=== PATIENT | female | born 1995 | race Caucasian/White ===

== ENCOUNTER 2020-04-12 | Emergency (ER) | payer OTHER, SELFPAY ==
--- NOTE | 2020-04-12 20:40 | ER ---
Nurse's Notes [facility] Name: Sindhu Pulido Age: 25 yrs Sex: Female : 1995 Arrival Date: 04/12/2020 Time: 20:28 Bed 15 Private MD: Diagnosis: Presentation: 04/12 20:28 Chief complaint: Patient states: "You don't have to triage me. I don't want to be seen. ca1 I want to sign myself out". Chief complaint: Chief complaint: EMS states: She reported she had a big drink, had an anxiety attack and 1 witness reported a seizure. Reports Hx of seizure, has not taking meds. Upon arrival on scene, pt has passed out with vomit all over. In the ambulance, she came to and states she doesn't want to be seen and come to the ER. A\\T\\Ox4, VS BP 110/60, HR 120. 20:28 Method Of Arrival: EMS: [facility] ca1 20:28 Method Of Arrival: EMS: [facility] ca1 ED Course: 20:28 Patient arrived in ED. am2 20:31 Gary Cruz MD is Attending Physician. 7 20:34 Cora Hawkins RN is Primary Nurse. ca1 Administered Medications: No medications were administered Outcome: 20:39 AMA AMA form signed ca1 20:40 Patient left the ED. ca1 Signatures: Karla Hernández am2 Cora Hawkins RN RN ca1 Gary Cruz MD MD [facility] Corrections: (The following items were deleted from the chart) 20:40 20:28 Chief complaint: EMS states: She reported she had a bog drink, had an anxiety ca1 attack and 1 witness reported a seizure. Reports Hx of seizure, has not taking meds. Upon arrival on scene, pt has passed out with vomit all over. In the ambulance, she came to and states she doesn't want to be seen and come to the ER. A\\T\\Ox4, VS BP 110/60, HR 120. Chief complaint: EMS states: She reported she had a bog drink, had an anxiety attack and 1 witness reported a seizure. Reports Hx of seizure, has not taking meds. Upon arrival on scene, pt has passed out with vomit all over. In the ambulance, she came to and states she doesn't want to be seen and come to the ER. A\\T\\Ox4, VS BP 110/60, HR 120. ca1
== END 2020-04-12 20:40 | disposition left against medical advice (07) ==
DX: Z53.21 Procedure and treatment not carried out due to patient leaving prior to being seen by health care provider (principal)
CPT/HCPCS: 99282

== ENCOUNTER 2023-10-08 19:01 | Emergency (ER) | payer OTHER ==
--- OUTSIDE RECORDS SUMMARY | 2023-10-08 19:04 | XMS REPORT | Continuity of Care Document ---
Author Name Unknown Address [address] [place] [address] [facility] Address [address] [place] [address] Care Team Providers Care Flume Tender Name Role Phone PCP, PATIENT DOES NOT HAVE A Primary Care Physic mago Unavailable Sangeeta MCKOY Attending Clinician Unavailable Sangeeta Ring Attending Clinician DANIEL LINTON Attending Clinician Unavailable Sangeeta MCKOY Admitting Clinician Unavailable Payers Payer Name Policy Type Policy Number Effective Date Expirati on Date Source [facility] [id number] 2022 00:00:00 Problems Condition Name Condition Details Condition Category Status Onset Date Resolution Date Last Treatment Date Treating Clinician Comments Source Pyelonephr itis Pyelonephr itis Disease Active 12-23 00:00: 00 [facility] Hypothyroi d Hypothyroi d Disease Active 10-16 00:00: 00 [facility] Allergies, Adverse Reactions, Alerts Allergy Name Allergy Type Status Severity Reaction(s) Onset Date Inactive Date Treating Clinician Comments Source AMOXICIL DINO DRUG INGREDI Active Other-Cmnt 08-02 00:00: 00 [facility] Amoxicil dino Propensi ty to adverse reaction s Active Other - See comments 08-02 00:00: 00 Chest pain [facility] PENICILL INS Drug Class Active Anaphylaxis 11-19 00:00: 00 [facility] Penicill ins Propensi ty to adverse reaction s to drug Active Anaphylaxis 11-19 00:00: 00 [facility] BEE STING / VENOM DRUG INGREDI Active High Hives 10-16 00:00: 00 [facility] Bee Sting / Venom Propensi ty to adverse reaction s Active Hives 10-16 00:00: 00 [facility] Social History Social Habit Start Date Stop Date Quantity Comments Source History of tobacco use Cigarette Smoker [facility] intake 2023-03-21 00:00:00 2023-03-21 00:00:00 0 /d [facility] History of Social function 2023-03-21 00:00:00 2023-03-21 00:00:00 [facility] Cigarettes smoked current (pack per day) - Reported 2015-08-14 00:00:00 2015-08-14 00:00:00 [facility] Cigarette pack-years 2015-08-14 00:00:00 2015-08-14 00:00:00 [facility] Tobacco use and exposure 2015-08-14 00:00:00 2015-08-14 00:00:00 User of smokeless tobacco [facility] Sex Assigned At 1995 00:00:00 1995 00:00:00 [facility] Smoking Status Start Date Stop Date Source Smokes tobacco daily 2015-08-14 00:00:00 [facility] Medications Ordered Medication Name Filled Medication Name Start Date Stop Date Current Medication? Ordering Clinician Indication Dosage Frequency Signature (SIG) Comments Components Source naproxen (NAPROSYN) tablet 500 mg 2022-05 04:15: 00 03-22 03:13 :00 No 500mg 500 mg, Oral, ONCE, 1 dose, On Tue03/21/23 at 2215, Routine [facility] clindamycin (CLEOCIN HCL) capsule 300 mg 2022-05 04:00: 00 03-22 03:12 :00 No 300mg 300 mg, Oral, ONCE, 1 dose, On Tue03/21/23 at 2200, KARL
Re ason for Anti-Infec tive: Documented Infection< br>Agustina watters Infection Site: HEENT
D uration of Therapy: 10 days
Re stricted use approved by: ED PROVIDER [facility] naproxen (NAPROSYN) 500 mg tablet 2022-05 00:00: 00 Yes [id number] 500mg Take 1 tablet by mouth in the morning and 1 tablet in the evening. Take with meals. [facility] clindamycin 300 mg capsule 2022-05 00:00: 00 04-01 05:59 :00 No [id number] 300mg Take 1 capsule by mouth 4 (four) times daily for 10 days. [facility] ciprofloxac in HCl 500 mg tablet 08-03 00:00: 00 Yes [id number] 500mg Take 1 tablet by mouth daily. [facility] doxycycline hyclate 100 mg capsule 08-02 00:00: 00 Yes [id number] 100mg Take 1 capsule by mouth 2 (two) times daily. [facility] Immunizations Ordered Immunization Name Filled Immunization Name Date Status Comments Source DTAP Unknown Completed [facility] DTAP Unknown Completed [facility] DTAP Unknown Completed [facility] DTAP Unknown Completed [facility] DTAP Unknown Completed [facility] HIB 4 Dose Schedule Unknown Completed [facility] HIB 4 Dose Schedule Unknown Completed [facility] HIB 4 Dose Schedule Unknown Completed [facility] HIB 4 Dose Schedule Unknown Completed [facility] HEPATITIS A Unknown Completed [facility] HEPATITIS A Unknown Completed [facility] Hep B, Adol or Pedi Dosage Unknown Completed [facility] Hep B, Adol or Pedi Dosage Unknown Completed [facility] Hep B, Adol or Pedi Dosage Unknown Completed [facility] HPV Unknown Completed [facility] HPV Unknown Completed [facility] HPV Unknown Completed [facility] Meningococcal Polysaccharide (groups A, C, Y and W-135) conjugate vaccine (MCV4P) Unknown Completed [facility] MMR Unknown Completed [facility] MMR Unknown Completed [facility] Polio (IPV/OPV) Unknown [facility] Polio (IPV/OPV) Unknown [facility] Polio (IPV/OPV) Unknown [facility] Polio (IPV/OPV) Unknown [facility] TDAP Unknown Completed [facility]pox Disease [facility] Unknown Completed [facility] Vital Signs Vital Name Observation Time Observation Value Comments S ource Systolic blood pressure 2023-03-22 02:57:00 125 mm[Hg] [facility] Diastolic blood pressure 2023-03-22 02:57:00 82 mm[Hg] [facility] Heart rate 2023-03-22 02:57:00 97 /min [facility] Body temperature 2023-03-22 02:57:00 37.22 Jennifer [facility] Respiratory rate 2023-03-22 02:57:00 16 /min [facility] Body height 2023-03-22 02:57:00 147.3 cm [facility] Body weight 2023-03-22 02:57:00 50.803 kg [facility] BMI 2023-03-22 02:57:00 23.41 kg/m2 [facility] Oxygen saturation in Arterial blood by Pulse oximetry 2023-03-22 02:57:00 99 /min [facility] Procedures Procedure Date / Time Performed Performing Clinicia n Source ASSIGNMENT OF BENEFITS 2023-03-22 04:10:22 Docto r Unassigned, Luis Lopez [facility] XR KNEE 3 VW LEFT 2023-03-22 03:35:46 Sangeeta Mckoy [facility] NOTICE OF PRIVACY PRACTICES 2023-03-22 02:44:41 Doctor Unassigned, Luis Lopez [facility] CONSENT/REFUSAL FOR DIAGNOSIS AND TREATMENT 2023-03-22 02:43:57 Doctor Unassigned, Luis Lopez [facility] Encounters Start Date/Time End Date/Time Encounter Type Admission Type Attending [facility] Care Facility Care Department Encounter ID Source 2023-03-21 21:00:00 2023-03-21 22:40:00 Emergency X Sangeeta MCKOY [facility] ERT [id number] [facility] 2023-03-21 21:00:00 2023-03-21 22:40:00 Emergency Sangeeta Mckoy [facility] [id number] [facility] 2020-08-02 13:58:00 2020-08-02 13:58:00 Emergency X DANIEL LINTON [facility] ERT [id number] [facility]
--- NOTE | 2023-10-08 19:25 | ER ---
Nurse's Notes [facility] Name: Sindhu Pulido Age: 28 yrs Sex: Female : 1995 Arrival Date: 10/08/2023 Time: 19:01 Bed 13 Private MD: Diagnosis: Abdominal pain, unspecified Presentation: 10/07 19:03 Chief complaint: EMS states: abdominal pain, 5 days . Coronavirus screen: At rs5 this time, the client does not indicate any symptoms associated with coronavirus-19. Ebola Screen: No symptoms or risks identified at this time. Risk Assessment: Do you want to hurt yourself or someone else? Patient reports no desire to harm self or others. Onset of symptoms was October 08, 2023. 19:03 Method Of Arrival: EMS: [facility] rs5 19:03 Acuity: DEVONTE 3 rs5 Historical: - Allergies: 19:04 PENICILLINS; rs5 - PMHx: 19:04 Anemia; Asthma; thyroid CA; rs5 - PSHx: 19:04 None; rs5 - Immunization history:: Adult Immunizations up to date. - Infectious Disease History:: Denies. - Social history:: Smoking status: Patient denies any tobacco usage or history of. ED Course: 19:03 Patient arrived in ED. rs5 19:04 Triage completed. rs5 19:04 Kory Sharpe MD is Attending Physician. ec2 Administered Medications: No medications were administered Outcome: 19:33 Patient left the ED. pf1 Signatures: Kala Ferrari RN RN pf1 Tobin Jimenez RN RN rs5 Kory Sharpe MD MD ec2
--- NOTE | 2023-10-08 19:25 | EDPHYS ---
Physician Documentation [facility] Name: Sindhu Pulido Age: 28 yrs Sex: Female : 1995 Arrival Date: 10/08/2023 Time: 19:01 Bed 13 Private MD: ED Physician Kory Sharpe HPI: 10/07 19:25 This 28 yrs old Female presents to ER via EMS with complaints of reported abd pain. ec2 19:25 pt eloped prior to evaluation. ec2 Historical: - Allergies: 19:04 PENICILLINS; rs5 - PMHx: 19:04 Anemia; Asthma; thyroid CA; rs5 - PSHx: 19:04 None; rs5 - Immunization history:: Adult Immunizations up to date. - Infectious Disease History:: Denies. - Social history:: Smoking status: Patient denies any tobacco usage or history of. ROS: 19:25 Constitutional: unknown ec2 Exam: 19:25 Constitutional: unable to assess ec2 MDM: 19:07 Patient medically screened. ec2 19:25 Data reviewed: nurses notes. ED course: patient eloped prior to my evaluation. ec2 Administered Medications: No medications were administered Disposition Summary: 10/08/23 19:25 Eloped Notes: Disposition: before being seen by provider ec2 Reason: (see nurse's notes) ec2 Diagnosis - Abdominal pain, unspecified ec2 Signatures: Tobin Jimenez, RN RN rs5 Kory Sharpe MD MD ec2
== END 2023-10-08 19:33 | disposition left against medical advice (07) ==
LOC: ER 19:01
DX: Z53.21 Procedure and treatment not carried out due to patient leaving prior to being seen by health care provider (principal)
CPT/HCPCS: 99282